=== PATIENT | female | born 1985 | race Caucasian/White ===

== ENCOUNTER 2016-08-19 11:29 | Emergency (ER) | payer OTHER ==
[~2016-08-19] VITALS: Ht 160 cm; Wt 85.0 kg
[~2016-08-19 11:29] MED LIST: CEPH500C3 PO; CIPR750T10 PO
[2016-08-19 11:31] VITALS: BP 156/100; PULSE 101; RESP 16; TEMP 99.1; O2SAT 99
--- NOTE | 2016-08-19 12:37 | PD ---
HPI . c/o nausea, vomiting and upset stomach for ~2-3 days also had a headache that she does not have now Chief Complaint: GI Complaint Time Seen by Provider: 12:37 Travel History International Travel<30 days: No Contact w/Intl Traveler<30days: No Traveled to known affect area: No History of Present Illness HPI 31-year-old female with no significant past medical history here with complaints of nausea, vomiting and upset stomach for the past 3 days. Patient also says that she had a headache that was coming occasionally, but is now gone. She decided to come into the emergency room for further evaluation as she was concerned about her symptoms. She tells me that she is rarely ever sick and is very concerned. At this present moment she tells me that she had 5- 6 episodes of diarrhea this morning and 2 episodes of vomiting. The headache occurred several days ago, but it is now gone. She denies any abdominal pain and tells me that she hears her belly making gurgling sounds. She says the main reason for her coming into the emergency department was because of the gurgling sounds. She denies any headache, weakness, fatigue, numbness or tingling. PFSH Past Medical History Diabetes: Yes (GESTATIONAL) Diminished Hearing: No ?: Not LMP: NOW : 4 Para: 3 : 1 Dilation and Curettage (D&C): Yes Tubal Ligation: Yes Past Surgical History Section: Yes (X 2) Gynecologic Surgery: Yes Pacemaker: No Social History Alcohol Use: No Tobacco Use: No Substance Use: No Allergies-Medications (Allergen,Severity, Reaction): Coded Allergies: No Known Allergies (Verified , 08/19/16) Reported Meds & Prescriptions Reported Meds & Active Scripts Active Zofran (Ondansetron HCl) 4 Mg Tab 4 Mg PO Q8HR PRN Review of Systems General / Constitutional: No: Fever Eyes: No: Visual changes HENT: No: Headaches Cardiovascular: No: Chest Pain or Discomfort Respiratory: No: Shortness of Breath Gastrointestinal: Positive: Nausea, Vomiting, Diarrhea, No: Abdominal Pain Genitourinary: No: Dysuria Musculoskeletal: No: Pain Skin: No Rash Neurologic: No: Weakness Psychiatric: No: Depression Endocrine: No: Polydipsia Hematologic/Lymphatic: No: Easy Bruising Physical Exam Narrative GENERAL: AAO x 3, no acute distress, Well-nourished, well-developed patient. SKIN: Warm and dry. No visible rashes or bruising. HEAD: Normocephalic and atraumatic. EYES: No scleral icterus. No injection or drainage. EOM intact, PERRLA, ENT: No nasal drainage noted. Mucous membranes pink. Airway patent. normal oropharynx NECK: Supple, trachea midline. No JVD. no lymphadenopathy CARDIOVASCULAR: Regular rate and rhythm without murmurs, gallops, or rubs. RESPIRATORY: Breath sounds equal bilaterally. No accessory muscle use. No rhonchi or rales. GASTROINTESTINAL: Abdomen soft, non-tender, nondistended. normoactive bowel sounds, nontender throughout, no rebound or guarding, no McBurney's point tenderness EXTREMITIES: No cyanosis or edema. NEURO: CN II through XII intact, bracelet and brooch maker strength equal bilaterally. Upper and lower Daniel strength 5 out of 5. Cerebellum function is normal. BACK: Nontender without obvious deformity. No CVA tenderness. PSYCH: AAO x 3, normal affect. Data Data Last Documented VS Vital Signs Date Time Temp Pulse Resp B/P Pulse Ox O2 Delivery O2 Flow Rate FiO2 08/19/16 12:55 92 16 145/100 98 Room Air 08/19/16 11:31 99.1 Orders Ondansetron Odt (Zofran Odt) (08/19/16 12:45) ^ Other Nursing Orders (08/19/16 12:43) MDM Medical Decision Making Medical Screen Exam Complete: Yes Emergency Medical Condition: Yes Medical Record Reviewed: Yes Differential Diagnosis Gastroenteritis, less likely influenza, less likely migraines, less likely colitis Narrative Course This is a 31-year-old female here with GI complaints. Examination was done and she has no abnormalities on exam. Abdominal examination is benign. No evidence of acute abdomen. I've offered IV fluids, and patient declined as she does not like needles. She tells me she rather go home and drink fluids. I provided her with Zofran here in the emergency department and some Gatorade. I will discharge her home with Zofran. I explained to her that this is self limiting. Patient verbalized understanding of instructions, questions were answered, and thanked me for their care. I advised them if their condition worsens, please return to the nearest emergency room for further care. Diagnosis Primary Impression: Gastroenteritis Additional Impression: Elevated blood pressure reading without diagnosis of hypertension Patient Instructions: General Instructions Additional Instructions: Try to have a bland diet for the next 1-2 days. Things such as bananas, rice, apple and toast. Your blood pressure was elevated, please have that followed by a primary care provider. This will need to be monitored. Please return to emergency department if your symptoms return or worsen. Follow up with your primary care provider. Take medications as prescribed. If you develop a sudden onset of abdominal pain, go to nearest emergency department. Med/Other Pt SpecificInfo: Prescription(s) given Scripts Ondansetron (Zofran)4 Mg Tab4 Mg PO Q8HR PRN (NAUSEA OR VOMITING) #15 TAB Ref 0 Prov:Ivette Munoz MD 08/19/16 Disposition: 01 DISCHARGE HOME Condition: Stable Kita Burr August 19, 2016 12:37
[2016-08-19] MEDS ORDERED: ONDANSETRON ODT 4 MG TAB PO ONE (12:45)
[2016-08-19] MEDS ORDERED: ZOFR4TAB PO (12:47)
[2016-08-19 12:55] VITALS: BP 145/100; PULSE 92; RESP 16; O2SAT 98
== END 2016-08-19 14:08 | disposition home or self-care (01) ==
LOC: NEPD 11:29
DX: K52.9 Noninfective gastroenteritis and colitis, unspecified (principal); R03.0 Elevated blood-pressure reading, without diagnosis of hypertension
CPT/HCPCS: 99283

== ENCOUNTER 2016-09-06 21:56 | Emergency (ER) | payer OTHER ==
[~2016-09-06 21:56] MED LIST changes: -CEPH500C3 PO; -CIPR750T10 PO; +ZOFR4TAB PO
[2016-09-06 22:00] VITALS: BP 205/96; PULSE 84; RESP 18; TEMP 98.5; O2SAT 100
[2016-09-06 22:41] VITALS: BP 179/114; PULSE 82; RESP 16; O2SAT 99
--- NOTE | 2016-09-06 22:51 | PD ---
HPI Chief Complaint: Hypertension Time Seen by Provider: 22:34 Travel History International Travel<30 days: No Contact w/Intl Traveler<30days: No Traveled to known affect area: No History of Present Illness HPI OVER PAST 2 DAYS HAS BEEN CHECKING HER BP AT [facility] AND HAS NOTED IT IS ON THE HIGH SIDE...PT STATES SHE IS NOT AND HAD BTL, BUT HAD PREECLAMPSIA AND GEST DM WHILE ... PATIENT CURRENTLY STATES HEADACHE IS 1/10 AT BEST, NO PHOTOPHOBIA, NO N/V PFSH Past Medical History Diabetes: No (GESTATIONAL) Diminished Hearing: No Hypertension: No (preeclampsia) Influenza Vaccination: No ?: Not : 3 Para: 3 : 1 Dilation and Curettage (D&C): Yes Tubal Ligation: Yes Past Surgical History Section: Yes (X 2) Gynecologic Surgery: Yes Pacemaker: No Social History Alcohol Use: No Tobacco Use: No Substance Use: No Allergies-Medications (Allergen,Severity, Reaction): Coded Allergies: No Known Allergies (Verified , 09/06/16) Reported Meds & Prescriptions Reported Meds & Active Scripts Active No Active Prescriptions or Reported Medications Review of Systems Except as stated in HPI: all other systems reviewed are Neg HENT: Positive: Headaches (MILD BURNETT, NO VISUAL CHANGES, NO LATERALIZING WEAKNESS OR OTHER SYMPTOMS) Cardiovascular: Positive: Other (NOTED HTN OVER PAST 2 DAYS AT [facility]) Physical Exam Narrative GENERAL: SKIN: Warm and dry. HEAD: Atraumatic. Normocephalic. EYES: Pupils equal and round. No scleral icterus. No injection or drainage. ENT: No nasal bleeding or discharge. Mucous membranes pink and moist. NECK: Trachea midline. No JVD. CARDIOVASCULAR: Regular rate and rhythm. RESPIRATORY: No accessory muscle use. Clear to auscultation. Breath sounds equal bilaterally. GASTROINTESTINAL: Abdomen soft, non-tender, nondistended. Hepatic and splenic margins not palpable. MUSCULOSKELETAL: Extremities without clubbing, cyanosis, or edema. No obvious deformities. NEUROLOGICAL: Awake and alert. No obvious cranial nerve deficits. Motor grossly within normal limits. Five out of 5 muscle strength in the arms and legs. Normal speech. PSYCHIATRIC: Appropriate mood and affect; insight and judgment normal. Data Data Last Documented VS Vital Signs Date Time Temp Pulse Resp B/P Pulse Ox O2 Delivery O2 Flow Rate FiO2 09/07/16 00:05 87 16 166/97 100 Room Air 6/14/17 22:[address] Brain W/O Iv Contrast(Rout) (09/06/16 22:41) Ed Urine Pregnancytest Poc (09/06/16 22:41) Complete Blood Count With Diff (09/06/16 22:47) Comprehensive Metabolic Panel (09/06/16 22:47) B-Type Natriuretic Peptide (09/06/16 22:47) Thyroid Stimulating Hormone (09/06/16 22:47) Clonidine (Catapres) (09/06/16 23:00) Labs Laboratory Tests Test 09/06/16 22:50 White Blood Count 8.4 TH/MM3 Red Blood Count 5.42 MIL/MM3 Hemoglobin 11.5 GM/DL Hematocrit 36.6 % Mean Corpuscular Volume 67.5 FL Mean Corpuscular Hemoglobin 21.2 PG Mean Corpuscular Hemoglobin 31.3 % Concent Red Cell Distribution Width 16.1 % Platelet Count 216 TH/MM3 Mean Platelet Volume 7.9 FL Neutrophils (%) (Auto) 55.0 % Lymphocytes (%) (Auto) 33.7 % Monocytes (%) (Auto) 6.7 % Eosinophils (%) (Auto) 3.8 % Basophils (%) (Auto) 0.8 % Neutrophils # (Auto) 4.6 TH/MM3 Lymphocytes # (Auto) 2.8 TH/MM3 Monocytes # (Auto) 0.6 TH/MM3 Eosinophils # (Auto) 0.3 TH/MM3 Basophils # (Auto) 0.1 TH/MM3 CBC Comment DIFF FINAL Differential Comment Sodium Level 142 MEQ/L Potassium Level 3.7 MEQ/L Chloride Level 107 MEQ/L Carbon Dioxide Level 26.3 MEQ/L Anion Gap 9 MEQ/L Blood Urea Nitrogen 17 MG/DL Creatinine 0.81 MG/DL Estimat Glomerular Filtration 81 ML/MIN Rate Random Glucose 101 MG/DL Calcium Level 8.5 MG/DL Total Bilirubin 0.3 MG/DL Aspartate Amino Transf 30 U/L (AST/SGOT) Alanine Aminotransferase 43 U/L (ALT/SGPT) Alkaline Phosphatase 80 U/L B-Type Natriuretic Peptide 5 PG/ML Total Protein 8.0 GM/DL Albumin 4.1 GM/DL Thyroid Stimulating Hormone 0.665 uIU/ML 3rd Gen [facility] Medical Decision Making Medical Screen Exam Complete: Yes Emergency Medical Condition: Yes Medical Record Reviewed: Yes Differential Diagnosis HTN NEW ONSET VS RELATED, R/O ICH, R/O RENAL INSUFFICIENCY, R/O LIVER INSUFF, Narrative Course CT NEG FOR ICH/MASS OR SINUSITIS. PATIENT LABS WERE WNL, BP WAS CONTROLLED. WILL START ON LISINOPRIL AND ADVISE PATIENT TO SETUP PCP FOR FURTHER CARE Diagnosis Primary Impression: Elevated blood pressure reading without diagnosis of hypertension Patient Instructions: General Instructions Med/Other Pt SpecificInfo: Prescription(s) given Scripts Lisinopril 20 Mg Tab20 Mg PO DAILY #30 TAB Ref 0 Prov:Brant Staton MD 09/07/16 Disposition: DISCHARGE HOME Condition: Stable Brant Staton MD Sep 06, 2016 22:51
[2016-09-06] MEDS ORDERED: cloNIDine HCL 0.1 MG TAB PO ONE (23:00)
[2016-09-06 23:04] LABS: AUTOMATED NEUTROPHIL # 4.6 TH/MM3 (1.8-7.7); BASOPHIL # 0.1 TH/MM3 (0-0.2); BASOPHIL % 0.8 % (0.0-2.0); EOSINOPHIL # 0.3 TH/MM3 (0-0.4); EOSINOPHIL % 3.8 % (0.0-4.0); HEMATOCRIT 36.6 % (35.0-46.0); HEMO FLAGS DIFF FINAL; LYMPH % 33.7 % (9.0-44.0); LYMPHOCYTE # 2.8 TH/MM3 (1.0-4.8); MEAN CELL VOLUME 67.5 FL (80.0-100.0); MEAN CORPUSCULAR HEMOGLOBIN 21.2 PG (27.0-34.0); MEAN CORPUSCULAR HGB CONC 31.3 % (32.0-36.0); MONO % 6.7 % (0.0-8.0); PLATELET COUNT 216 TH/MM3 (150-450); RED BLOOD COUNT 5.42 MIL/MM3 (4.00-5.30); RED CELL DISTRIBUTION WIDTH 16.1 % (11.6-17.2); WHITE BLOOD COUNT 8.4 TH/MM3 (4.0-11.0)
[2016-09-06 23:33] LABS: ALT (GPT) 43 U/L (10-53); ANION GAP 9 MEQ/L (5-15); AST (GOT) 30 U/L (15-37); BICARBONATE 26.3 MEQ/L (21.0-32.0); BLOOD UREA NITROGEN 17 MG/DL (7-18); CHLORIDE 107 MEQ/L (98-107); GLOMERULAR FILTRATION RATE 81 ML/MIN (>89); POTASSIUM 3.7 MEQ/L (3.5-5.1); SODIUM (NA) 142 MEQ/L (136-145)
[2016-09-06 23:42] LABS: ALKALINE PHOSPHATASE 80 U/L (45-117); TOTAL BILIRUBIN ADULT 0.3 MG/DL (0.2-1.0)
--- NOTE | 2016-09-06 23:59 | RADRPT ---
EXAM DATE/TIME: 09/06/2016 23:37 [facility] COMPARISON: No previous studies available for comparison. INDICATIONS : Headaches with high blood pressure. RADIATION DOSE: CTDIvol (mGy) MEDICAL HISTORY : Hypertension. SURGICAL HISTORY : Tubal ligation. section. ENCOUNTER: Initial ACUITY: 1 day PAIN SCALE: 2/10 LOCATION: cranial TECHNIQUE: Multiple contiguous axial images were obtained of the head. Using automated exposure control and adj ustment of the mA and/or kV according to patient size, radiation dose was kept as low as reasonably a chievable to obtain optimal diagnostic quality images. FINDINGS: There is no evidence for intracranial hemorrhage, mass effect, mass lesions, edema, or extra-axial fl uid collections. The visualized bony structures appear intact. The ventricles are normal size for t he patient's age. There are no signs of acute infarction for technique. CONCLUSION: Unremarkable study. Maria L Cunningham MD on September 06, 2016 at 23:56 Board Certified Radiologist. This report was verified electronically.
[2016-09-07 00:05] VITALS: BP 166/97; PULSE 87; RESP 16; O2SAT 100
[2016-09-07] MEDS ORDERED: LISI-515 PO (00:09)
== END 2016-09-07 00:17 | disposition home or self-care (01) ==
LOC: NEPD 21:56
DX: R03.0 Elevated blood-pressure reading, without diagnosis of hypertension (principal); R51 Headache
CPT/HCPCS: 70450; 80053; 83880; 84443; 84703; 85025; 99285

== ENCOUNTER 2016-11-21 23:16 | Emergency (ER) | payer SELFPAY ==
[~2016-11-21] VITALS: Ht 160 cm; Wt 77.0 kg
[~2016-11-21 23:16] MED LIST changes: +LISI-515 PO; -ZOFR4TAB PO
[2016-11-21 23:18] VITALS: BP 147/77; PULSE 136; RESP 16; TEMP 101.4; O2SAT 99
[2016-11-22] MEDS ORDERED: antibiotic (00:11)
[2016-11-22] MEDS ORDERED: [UNRECOGNIZED DRUG - OTHER] (00:11)
[2016-11-22 00:21] VITALS: BP 138/87; PULSE 111; RESP 18; TEMP 101.8; O2SAT 98
[2016-11-22] MEDS ORDERED: ACETAMINOPHEN 325 MG TAB PO ONE (00:30)
[2016-11-22] MEDS ORDERED: SODIUM CHLOR 0.9% 1000 ML INJ 1,000 ML IV ONE ×2 (00:30→01:15)
[2016-11-22] MEDS ORDERED: ONDANSETRON HCL 4 MG/2 ML VIAL IV ONE (00:30)
[2016-11-22 00:34] VITALS: BP 143/86; PULSE 109; RESP 18; TEMP 101.8; O2SAT 99
[2016-11-22 00:42] LABS: AUTOMATED NEUTROPHIL # 4.3 TH/MM3 (1.8-7.7); BASOPHIL % 0.3 % (0.0-2.0); EOSINOPHIL % 0.4 % (0.0-4.0); HEMO FLAGS DIFF FINAL; LYMPH % 13.5 % (9.0-44.0); LYMPHOCYTE # 0.8 TH/MM3 (1.0-4.8); MEAN CELL VOLUME 69.1 FL (80.0-100.0); MEAN CORPUSCULAR HEMOGLOBIN 23.1 PG (27.0-34.0); MEAN CORPUSCULAR HGB CONC 33.4 % (32.0-36.0); MONO % 9.7 % (0.0-8.0); NEUT % 76.1 % (16.0-70.0); PLATELET COUNT 169 TH/MM3 (150-450); RED CELL DISTRIBUTION WIDTH 17.4 % (11.6-17.2); WHITE BLOOD COUNT 5.6 TH/MM3 (4.0-11.0)
--- NOTE | 2016-11-22 00:44 | RADRPT ---
EXAM DATE/TIME: 11/22/2016 00:35 [facility] COMPARISON: No previous studies available for comparison. INDICATIONS : Fever, cough. MEDICAL HISTORY : None. SURGICAL HISTORY : None. ENCOUNTER: Initial ACUITY: 1 day PAIN SCORE: 0/10 LOCATION: Bilateral chest FINDINGS: Portable AP view of the chest demonstrates a normal-sized cardiac silhouette. No effusion, consolidat ion, or pneumothorax is visualized. The bones and soft tissues demonstrate no acute abnormality. Lung s are underinflated. CONCLUSION: No acute cardiopulmonary abnormality is identified. Sergio De La Vega MD on November 22, 2016 at 0:42 Board Certified Radiologist. This report was verified electronically.
[2016-11-22 00:59] LABS: ANION GAP 12 MEQ/L (5-15); AST (GOT) 31 U/L (15-37); BICARBONATE 23.5 MEQ/L (21.0-32.0); BLOOD UREA NITROGEN 9 MG/DL (7-18); CHLORIDE 101 MEQ/L (98-107); GLOMERULAR FILTRATION RATE 68 ML/MIN (>89); POTASSIUM 3.4 MEQ/L (3.5-5.1); SODIUM (NA) 136 MEQ/L (136-145)
[2016-11-22 01:00] LABS: ALT (GPT) 47 U/L (10-53)
[2016-11-22 01:02] LABS: ALKALINE PHOSPHATASE 78 U/L (45-117); TOTAL BILIRUBIN ADULT 0.9 MG/DL (0.2-1.0)
[2016-11-22 01:05] LABS: BLOOD, URINE MOD (NEG); COMMENT (UR) CULT NOT INDICATED; CULTURE IF INDICATED CULT NOT INDICATED; GLUCOSE,URINE NEG (NEG); KETONE, URINE 40 mg/dL (NEG); MUCUS URINE MOD /lpf (OCC); NITRITE,URINE NEG (NEG); SQUAMOUS EPITHELIAL CELL URINE 1 /hpf (0-5); URINE COLOR YELLOW (YELLW/STRAW)
--- NOTE | 2016-11-22 01:05 | PD ---
HPI Chief Complaint: Tax Services Manager Problem/Complaint Time Seen by Provider: 00:19 Travel History International Travel<30 days: No Contact w/Intl Traveler<30days: No Traveled to known affect area: No History of Present Illness HPI The patient is a 31 year old female who presents to the [facility] emergency department with a history of febrile illness that she reports began yesterday. She reports that it fevers been as high as a MAXIMUM TEMPERATURE of 101. The patient reports that she's had associated urinary frequency and urgency and is concerned she may have a urinary tract infection. She reports that she has pelvic pain and a yellow vaginal discharge associated with this with some spotting. She reports that she is 2 weeks late on her menstrual cycle. She reports that she's had a bilateral tubal ligation. She did not take a test prior to arrival. The patient reports that today she's had nausea and vomiting 5. She denies having any diarrhea. Review of systems otherwise she denies having any recent cough, congestion, neck pain, chest pain , shortness of breath, diarrhea, or neurologic symptoms. The patient denies having any new sexual partners or concerns about sexual transmitted infections. LMP: 2 weeks ago [facility] Past Medical History Narrative Medical The patient's past medical history is significant for hypertension, history of gestational diabetes. Diminished Hearing: No Hypertension: Yes (preeclampsia) Tetanus Vaccination: < 5 Years Influenza Vaccination: Yes ?: Unknown : 3 Para: 3 : 1 Dilation and Curettage (D&C): Yes Tubal Ligation: Yes Past Surgical History Narrative Surgical The patient's past surgical history is significant for bilateral tubal ligation , 2, Mirena IUD removal. Section: Yes (X 2) Gynecologic Surgery: Yes Pacemaker: No Social History Alcohol Use: No Tobacco Use: No Substance Use: No Allergies-Medications (Allergen,Severity, Reaction): Coded Allergies: No Known Allergies (Verified , 11/22/16) Reported Meds & Prescriptions Reported Meds & Active Scripts Active Lisinopril 20 Mg Tab 20 Mg PO DAILY Reported [antibiotic] Review of Systems Except as stated in HPI: all other systems reviewed are Neg General / Constitutional: Positive: Fever (tmax 101) Eyes: No: Visual changes HENT: No: Headaches Cardiovascular: No: Chest Pain or Discomfort Respiratory: No: Shortness of Breath Gastrointestinal: Positive: Nausea, Vomiting (x6-7), Abdominal Pain, No: Diarrhea Genitourinary: Positive: Urgency, Frequency, Dysuria, Pelvic Pain, Vaginal Bleeding, Other (late 2 weeks for period) Musculoskeletal: Positive: Myalgias, No: Pain Skin: No Rash Neurologic: No: Weakness, Focal Abnormalities, Change in Mentation, Slurred Speech, Sensory Disturbance Psychiatric: No: Depression Endocrine: No: Polydipsia Hematologic/Lymphatic: No: Easy Bruising Physical Exam Narrative General: The patient is a well-developed well-nourished female in no acute distress. Head and Neck exam: Head is normocephalic atraumatic. Eyes: EOMI, pupils are equal round and reactive to light. Nose: Midline septum with pink mucous membranes Mouth: Dentition unremarkable. Moist mucus membranes. Posterior oropharynx is not erythematous. No tonsillar hypertrophy. Uvula midline. Airway patent. Neck: No palpable lymphadenopathy. No nuchal rigidity. No thyromegaly. Cardiovascular: Sinus tachycardia in the 1 teens without murmurs, gallops, or rubs. No pulse deficit to the extremities on simultaneous auscultation and palpation of her radial artery. Lungs: Clear to auscultation bilaterally. No wheezes, rhonchi, or rales. Abdomen: Soft, without tenderness to palpation in all 4 quadrants of the abdomen. No guarding, rebound, or rigidity. Normal bowel sounds are audible. No tenderness on palpation of McBurney's point. Negative Brooks's sign. Extremities: No clubbing, cyanosis, or edema. 2+ pulses in all 4 extremities. No calf tenderness on palpation. Back: No costovertebral angle tenderness to palpation. Neurologic Exam: Grossly nonfocal. Skin Exam: No rash noted. Intact skin that is warm and dry. Gynecologic exam: The patient was placed in the dorsal lithotomy position. Her external genitalia were examined. She had no evidence of rash or lesions. The speculum was placed into her vagina and the cervix was identified. She had a thin white discharge with a scant amount of blood. No cervical friability. On Bimanual exam: she has no cervical motion tenderness. No adnexal tenderness or prominence noted on palpation. She has bladder tenderness on palpation on bimanual examination. No uterine tenderness or enlargement noted on palpation. Data Data Last Documented VS Vital Signs Date Time Temp Pulse Resp B/P (MAP) Pulse Ox O2 Delivery O2 Flow Rate FiO2 11/22/16 01:37 99.7 11/22/16 00:34 109 18 99 Room Air Orders Orders Complete Blood Count With Diff (11/22/16 00:20) Comprehensive Metabolic Panel (11/22/16 00:20) Blood Culture (11/22/16 00:20) C-Reactive Protein (Crp) (11/22/16 00:20) Lipase (11/22/16 00:20) Urinalysis - C+S If Indicated (11/22/16 00:20) Chest, Single Ap (11/22/16 00:20) Iv Access Insert/Monitor (11/22/16 00:20) Ecg Monitoring (11/22/16 00:20) Oximetry (11/22/16 00:20) Ed Urine Pregnancytest Poc (11/22/16 00:20) Lactic Acid Sepsis Protocol (11/22/16 00:20) Sodium Chlor 0.9% 1000 Ml Inj (Ns 1000 M (11/22/16 00:30) Ondansetron Inj (Zofran Inj) (11/22/16 00:30) Acetaminophen (Tylenol) (11/22/16 00:30) Gc And Chlamydia Pcr (11/22/16 01:07) Wet Prep Profile (11/22/16 01:07) Ceftriaxone Inj (Rocephin Inj) (11/22/16 01:15) Sodium Chlor 0.9% 1000 Ml Inj (Ns 1000 M (11/22/16 01:15) Oral Rehydration (11/22/16 01:08) Labs Laboratory Tests Test 11/22/16 00:28 11/22/16 02:05 White Blood Count 5.6 TH/MM3 Red Blood Count 5.50 MIL/MM3 Hemoglobin 12.7 GM/DL Hematocrit 38.0 % Mean Corpuscular Volume 69.1 FL Mean Corpuscular Hemoglobin 23.1 PG Mean Corpuscular Hemoglobin Concent 33.4 % Red Cell Distribution Width 17.4 % Platelet Count 169 TH/MM3 Mean Platelet Volume 7.5 FL Neutrophils (%) (Auto) 76.1 % Lymphocytes (%) (Auto) 13.5 % Monocytes (%) (Auto) 9.7 % Eosinophils (%) (Auto) 0.4 % Basophils (%) (Auto) 0.3 % Neutrophils # (Auto) 4.3 TH/MM3 Lymphocytes # (Auto) 0.8 TH/MM3 Monocytes # (Auto) 0.5 TH/MM3 Eosinophils # (Auto) 0.0 TH/MM3 Basophils # (Auto) 0.0 TH/MM3 CBC Comment DIFF FINAL Differential Comment Urine Color YELLOW Urine Turbidity CLOUDY Urine pH 6.0 Urine Specific [place] 1.030 Urine Protein 100 mg/dL Urine Glucose (UA) NEG mg/dL Urine Ketones 40 mg/dL Urine Occult Blood MOD Urine Nitrite NEG Urine Bilirubin NEG Urine Urobilinogen LESS THAN 2.0 MG/DL Urine Leukocyte Esterase NEG Urine RBC 9 /hpf Urine Squamous Epithelial Cells 1 /hpf Urine Amorphous Sediment RARE Urine Mucus MOD /lpf Microscopic Urinalysis Comment CULT NOT INDICATED Blood Urea Nitrogen 9 MG/DL Creatinine 0.95 MG/DL Random Glucose 130 MG/DL Total Protein 8.8 GM/DL Albumin 4.1 GM/DL Calcium Level 8.5 MG/DL Alkaline Phosphatase 78 U/L Aspartate Amino Transf (AST/SGOT) 31 U/L Alanine Aminotransferase (ALT/SGPT) 47 U/L Total Bilirubin 0.9 MG/DL Sodium Level 136 MEQ/L Potassium Level 3.4 MEQ/L Chloride Level 101 MEQ/L Carbon Dioxide Level 23.5 MEQ/L Anion Gap 12 MEQ/L Estimat Glomerular Filtration Rate 68 ML/MIN Lactic Acid Level 1.3 mmol/L C-Reactive Protein 4.00 MG/DL Lipase 134 U/L Clue Cells (Wet Prep) NONE SEEN Vaginal Trichomonas (Wet Prep) NONE SEEN Vaginal Yeast (Wet Prep) NONE SEEN MDM Medical Decision Making Medical Screen Exam Complete: Yes Emergency Medical Condition: Yes Medical Record Reviewed: Yes Interpretation(s) Last Impressions Chest X-Ray 11/22/16 0020 Signed Impressions: Service Date/Time: Tuesday, November 22, 2016 00:35 - CONCLUSION: No acute cardiopulmonary abnormality is identified. Sergio De La Vega MD Differential Diagnosis Cervicitis, versus PID, versus urinary tract infection, versus pyelonephritis, versus viral syndrome Narrative Course During the course of the patients emergency department visit, the patients history, examination, and differential diagnosis were reviewed with the patient. The patient had IV access obtained and blood work sent for analysis. The patient's was on a cardiac rehabilitation program director with oximetry and blood pressure monitoring. The patient was initially provided normal saline 1 L IV fluid bolus, Zofran 4 mg IV, Tylenol 650 by mouth 1. The patient had a second liter of normal saline administered. The patient was started on oral rehydration therapy which she tolerated well. The patients laboratory studies were reviewed and remarkable for a white count of 5.6, hemoglobin 12.7, platelets 169 with 76.1 neutrophils, monocytes 9.7, CMP is remarkable for potassium of 3.4, glucose 1:30, C-reactive protein 4, total protein 8.8, lipase 134, lactic acid 1.3, urinalysis shows 40 ketones, moderate occult blood, 19 RBCs, moderate mucus, culture not indicated. Radiology studies were reviewed and remarkable for a chest x-ray that is unremarkable. The patient is resting comfortably and feels better, is alert and in no distress. The patients results and examination findings were discussed with the patient. The repeat examination is unremarkable and benign. The history, exam, diagnostic testing, and current condition do not suggest any significant pathology to warrant further testing, continued ED treatment, admission, or surgical evaluation at this point. The vital signs have been stable. The patient does not have uncontrollable pain, intractable vomiting, or other significant symptoms. The patient's condition is stable and appropriate for discharge. The patient will pursue further outpatient evaluation with a primary care physician or other designated or consulting physician as indicated in the discharge instructions. The patient expressed understanding and was agreeable with this plan. Diagnosis Primary Impression: Febrile illness, acute Additional Impressions: Microscopic hematuria Vaginitis Qualified Codes: N76.0 - Acute vaginitis Referrals: Primary Care Physician 2 days Patient Instructions: Fever in Adults (ED), General Instructions, Hematuria (ED ), Pelvic Pain in Women (ED) Med/Other Pt SpecificInfo: Prescription(s) given Scripts Ondansetron Odt (Zofran Odt) 4 Mg Tab 4 MG SL Q6HR Y for Nausea/Vomiting, #307 TAB 0 Refills Prov: Bertha Liriano MD 11/22/16 Cefuroxime (Cefuroxime) 500 Mg Tab 500 MG PO BID for Infection for 10 Days, TAB 0 Refills Prov: Bertha Liriano MD 11/22/16 Doxycycline Hyclate (Doxycycline Hyclate) 100 Mg Cap 100 MG PO BID for Infection, #20 CAP 0 Refills Prov: Bertha Liriano MD 11/22/16 Disposition: 01 DISCHARGE HOME Condition: Stable Bertha Liriano MD Nov 22, 2016 01:04
[2016-11-22] MEDS ORDERED: cefTRIAXone INJ 1,000 MG in SODIUM CHLORIDE 0.9% INJ 100 ML IV ONE (01:15)
[2016-11-22 01:37] VITALS: TEMP 99.7
[2016-11-22] MEDS ORDERED: DOXY100C PO (03:31)
[2016-11-22] MEDS ORDERED: ZOFR4TAB3 SL (03:31)
[2016-11-22] MEDS ORDERED: CEFU1TAB20 PO (03:31)
[2016-11-22 05:03] LABS: CHLAMYDIA PCR NOT DETECTED (NOT DETECT); NEISSERIA PCR NOT DETECTED (NOT DETECT)
== END 2016-11-22 04:04 | disposition home or self-care (01) ==
LOC: NEPE 23:16
DX: R50.9 Fever, unspecified (principal); R31.29 Other microscopic hematuria; N76.0 Acute vaginitis; R00.0 Tachycardia, unspecified; R11.2 Nausea with vomiting, unspecified; I10 Essential (primary) hypertension; Z79.899 Other long term (current) drug therapy
CPT/HCPCS: 71010; 80053; 81001; 83605; 83690; 84703; 85025; 86140; 87040; 87210; 87491; 87591; 96361; 96374; 96375; 99284; J0696; J2405; J7030

== ENCOUNTER 2017-04-22 09:24 | Emergency (ER) | payer OTHER ==
[~2017-04-22] VITALS: Ht 160 cm; Wt 82.0 kg
[~2017-04-22 09:24] MED LIST changes: +CEFU1TAB20 PO; +DOXY100C PO; +ZOFR4TAB3 SL; +antibiotic
[2017-04-22 09:27] VITALS: BP 163/98; PULSE 85; RESP 14; TEMP 98.7; O2SAT 99
[2017-04-22] MEDS ORDERED: SODIUM CHLOR 0.9% 1000 ML INJ 1,000 ML IV SCH (09:44)
[2017-04-22] MEDS ORDERED: KETOROLAC TROMETHAMINE 30 MG/ML (IVP) VIAL IVP ONE (09:45)
[2017-04-22] MEDS ORDERED: SODIUM CHLORIDE 0.9% FLUSH 10 ML FLUSH IV FLUSH PRN (09:45)
--- NOTE | 2017-04-22 09:51 | PD ---
HPI Chief Complaint: Abdominal Pain Time Seen by Provider: 09:36 Travel History International Travel<30 days: No Contact w/Intl Traveler<30days: No Traveled to known affect area: No History of Present Illness HPI 32-year-old female presents to the emergency department for evaluation of abdominal pain for 1 week. She states the pain is constant in her right lower quadrant and left lower quadrant. Patient states she does a lot of heavy lifting at work, but the heavy lifting does not increase her pain. She states that the pain is currently 3/10, aching without radiation. No exacerbating or alleviating factors. She denies reporting history of tubal ligation. She denies any other abdominal surgeries or history of abdominal pain. No fevers or chills. No nausea, vomiting, diarrhea, constipation. She denies any abnormal vaginal discharge or risk of STDs. She denies any pelvic pain. Moderate severity. PFSH Past Medical History Diminished Hearing: No Hypertension: Yes (preeclampsia) ?: Not LMP: 03/2017 : 3 Para: 3 : 1 Dilation and Curettage (D&C): Yes Tubal Ligation: Yes Past Surgical History Section: Yes (X 2) Gynecologic Surgery: Yes Pacemaker: No Social History Alcohol Use: No Tobacco Use: No Substance Use: No Allergies-Medications (Allergen,Severity, Reaction): Coded Allergies: No Known Allergies (Verified Adverse Reaction, Unknown, 04/22/17) Reported Meds & Prescriptions Reported Meds & Active Scripts Active Lisinopril 20 Mg Tab 20 Mg PO DAILY Review of Systems Except as stated in HPI: all other systems reviewed are Neg Physical Exam Narrative GENERAL: Well-nourished, well-developed female patient, ambulatory. Afebrile. SKIN: Focused skin assessment warm/dry. HEAD: Normocephalic. Atraumatic. EYES: No scleral icterus. No injection or drainage. NECK: Supple, trachea midline. No JVD or lymphadenopathy. CARDIOVASCULAR: Regular rate and rhythm without murmurs, gallops, or rubs. RESPIRATORY: Breath sounds equal bilaterally. No accessory muscle use. Lungs sounds are clear to auscultation. GASTROINTESTINAL: Abdomen soft and nondistended. Patient has tenderness over the right lower quadrant and left lower quadrant as well as periumbilical regions. MUSCULOSKELETAL: No cyanosis, or edema. BACK: Nontender without obvious deformity. No CVA tenderness. Data Data Last Documented VS Vital Signs Date Time Temp Pulse Resp B/P (MAP) Pulse Ox O2 Delivery O2 Flow Rate FiO2 04/22/17 10:20 81 18 134/96 (109) 99 Room Air 04/22/17 09:27 98.7 Orders Orders Complete Blood Count With Diff (04/22/17 09:44) Comprehensive Metabolic Panel (04/22/17 09:44) Lipase (04/22/17 09:44) Urinalysis - C+S If Indicated (04/22/17 09:44) Ct Abd/Pel W Iv Contrast(Rout) (04/22/17 09:44) Iv Access Insert/Monitor (04/22/17 09:44) Ecg Monitoring (04/22/17 09:44) Oximetry (04/22/17 09:44) Sodium Chlor 0.9% 1000 Ml Inj (Ns 1000 M (04/22/17 09:44) Sodium Chloride 0.9% Flush (Ns Flush) (04/22/17 09:45) Ketorolac Inj (Toradol Inj) (04/22/17 09:45) Ed Urine Pregnancytest Poc (04/22/17 09:44) Iohexol 350 Inj (Omnipaque 350 Inj) (04/22/17 10:50) Labs Laboratory Tests Test 04/22/17 10:05 04/22/17 10:15 Urine Color YELLOW Urine Turbidity CLEAR Urine pH 5.5 Urine Specific Cass 1.025 Urine Protein TRACE mg/dL Urine Glucose (UA) NEG mg/dL Urine Ketones NEG mg/dL Urine Occult Blood NEG Urine Nitrite NEG Urine Bilirubin NEG Urine Urobilinogen LESS THAN 2.0 MG/DL Urine Leukocyte Esterase NEG Urine RBC 1 /hpf Urine WBC 1 /hpf Urine Squamous Epithelial Cells 4 /hpf Urine Mucus FEW /lpf Microscopic Urinalysis Comment CULT NOT INDICATED White Blood Count 7.1 TH/MM3 Red Blood Count 5.49 MIL/MM3 Hemoglobin 11.4 GM/DL Hematocrit 35.7 % Mean Corpuscular Volume 65.0 FL Mean Corpuscular Hemoglobin 20.8 PG Mean Corpuscular Hemoglobin Concent 31.9 % Red Cell Distribution Width 16.6 % Platelet Count 240 TH/MM3 Mean Platelet Volume 7.8 FL Neutrophils (%) (Auto) 56.1 % Lymphocytes (%) (Auto) 33.2 % Monocytes (%) (Auto) 5.5 % Eosinophils (%) (Auto) 4.4 % Basophils (%) (Auto) 0.8 % Neutrophils # (Auto) 4.0 TH/MM3 Lymphocytes # (Auto) 2.4 TH/MM3 Monocytes # (Auto) 0.4 TH/MM3 Eosinophils # (Auto) 0.3 TH/MM3 Basophils # (Auto) 0.1 TH/MM3 CBC Comment DIFF FINAL Differential Comment Blood Urea Nitrogen 17 MG/DL Creatinine 0.74 MG/DL Random Glucose 113 MG/DL Total Protein 8.4 GM/DL Albumin 4.1 GM/DL Calcium Level 8.7 MG/DL Alkaline Phosphatase 74 U/L Aspartate Amino Transf (AST/SGOT) 17 U/L Alanine Aminotransferase (ALT/SGPT) 27 U/L Total Bilirubin 0.4 MG/DL Sodium Level 140 MEQ/L Potassium Level 3.7 MEQ/L Chloride Level 108 MEQ/L Carbon Dioxide Level 25.4 MEQ/L Anion Gap 7 MEQ/L Estimat Glomerular Filtration Rate 90 ML/MIN Lipase 206 U/L [facility] Medical Decision Making Medical Screen Exam Complete: Yes Emergency Medical Condition: Yes Medical Record Reviewed: Yes Interpretation(s) Last Impressions Abdomen/Pelvis CT 04/22/17 0944 Signed Impressions: Service Date/Time: Saturday, April 22, 2017 10:32 - CONCLUSION: 1. Focal soft tissue mass involving the left anterior pelvic wall immediately adjacent to a midline incision. This may represent an area of fibrosis, endometriosis and less likely neoplasm. Recommend correlation with the site of the patient's pain. 2. Bilateral nonobstructing renal stones. No evidence of inflammatory process within the abdomen or pelvis.. Sherie Timmons MD Differential Diagnosis UTI versus appendicitis versus diverticulitis versus ovarian cyst versus pyelonephritis Narrative Course 32-year-old female presents to the emergency department for evaluation of lower abdominal pain for 1 week. IV access established. CBC, CMP, lipase, UA, urine test are ordered and pending. CT abdomen/pelvis with IV contrast is ordered and pending. Patient is given normal saline 1 L IV bolus, Toradol 30 mg IV. CBC shows no acute abnormality. CMP shows no acute abnormality. Lipase is 206. UA is negative for acute infection. UPT is negative. CT abdomen/pelvis shows focal soft tissue mass involving the left anterior pelvic wall immediately adjacent to a midline incision. This may represent an area of fibrosis, endometriosis and less likely neoplasm. Recommend correlation with the site of the patient's pain; Bilateral nonobstructing renal stones. No evidence of inflammatory process within the abdomen or pelvis. 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 She verbalizes agreement. The patient was discharged in stable condition with instructions, including return instructions and follow up instructions. Diagnosis Primary Impression: Abdominal pain Qualified Codes: R10.30 - Lower abdominal pain, unspecified Referrals: [facility] call for appointment [employer] call for appointment [facility] call for appointment Patient Instructions: Abdominal Pain (ED), General Instructions Departure Forms: Tests/Procedures, Work Release Enter return to work date: Apr 23, 2017 Additional Instructions: Follow-up with auto body shop manager. I also gave information on the [facility] clinic as well as the [facility] clinic for women. Take ibuprofen as directed as needed with food for pain. Return to the emergency department for any acute worsening of symptoms. Med/Other Pt SpecificInfo: Prescription(s) given Scripts Ibuprofen (Ibuprofen) 600 Mg Tab 600 MG PO TID Y for PAIN SCALE 1 TO 10, #21 TAB 0 Refills Prov: Priscilla Roland 04/22/17 Disposition: 01 DISCHARGE HOME Condition: Stable Priscilla Roland Apr 22, 2017 09:51
[2017-04-22 10:20] VITALS: BP 134/96; PULSE 81; RESP 18; O2SAT 99
[2017-04-22 10:42] LABS: BASOPHIL # 0.1 TH/MM3 (0-0.2); BASOPHIL % 0.8 % (0.0-2.0); EOSINOPHIL # 0.3 TH/MM3 (0-0.4); EOSINOPHIL % 4.4 % (0.0-4.0); HEMATOCRIT 35.7 % (35.0-46.0); HEMOGLOBIN 11.4 GM/DL (11.6-15.3); LYMPH % 33.2 % (9.0-44.0); LYMPHOCYTE # 2.4 TH/MM3 (1.0-4.8); MEAN CORPUSCULAR HEMOGLOBIN 20.8 PG (27.0-34.0); MEAN CORPUSCULAR HGB CONC 31.9 % (32.0-36.0); MEAN PLATELET VOLUME 7.8 FL (7.0-11.0); MONO % 5.5 % (0.0-8.0); MONOCYTE # 0.4 TH/MM3 (0-0.9); NEUT % 56.1 % (16.0-70.0); PLATELET COUNT 240 TH/MM3 (150-450); RED BLOOD COUNT 5.49 MIL/MM3 (4.00-5.30); RED CELL DISTRIBUTION WIDTH 16.6 % (11.6-17.2); WHITE BLOOD COUNT 7.1 TH/MM3 (4.0-11.0)
[2017-04-22 10:49] LABS: BILIRUBIN, URINE NEG (NEG); BLOOD, URINE NEG (NEG); GLUCOSE,URINE NEG (NEG); KETONE, URINE NEG (NEG); MUCUS URINE FEW /lpf (OCC); NITRITE,URINE NEG (NEG); PH, URINE 5.5 (5.0-8.5); SQUAMOUS EPITHELIAL CELL URINE 4 /hpf (0-5); URINE COLOR YELLOW (YELLW/STRAW); URINE LEUKOCYTE ESTERASE NEG (NEG)
[2017-04-22] MEDS ORDERED: IOHEXOL 350 MG/ML 10 ML VIAL (for RAD DIAG) IVCONTRAST ONE (10:50)
[2017-04-22 10:57] LABS: ALBUMIN 4.1 GM/DL (3.4-5.0); ALT (GPT) 27 U/L (10-53); AST (GOT) 17 U/L (15-37); BICARBONATE 25.4 MEQ/L (21.0-32.0); BLOOD UREA NITROGEN 17 MG/DL (7-18); CALCIUM 8.7 MG/DL (8.5-10.1); CHLORIDE 108 MEQ/L (98-107); CREATININE 0.74 MG/DL (0.50-1.00); GLOMERULAR FILTRATION RATE 90 ML/MIN (>89); GLUCOSE,RANDOM 113 MG/DL (74-106); SODIUM (NA) 140 MEQ/L (136-145)
[2017-04-22 10:59] LABS: ALKALINE PHOSPHATASE 74 U/L (45-117); TOTAL BILIRUBIN ADULT 0.4 MG/DL (0.2-1.0); TOTAL PROTEIN 8.4 GM/DL (6.4-8.2)
--- NOTE | 2017-04-22 11:21 | RADRPT ---
EXAM DATE/TIME: 04/22/2017 10:32 [place] COMPARISON: No previous studies available for comparison. INDICATIONS : Lower abdomen pain for one week. IV CONTRAST: 85 cc Omnipaque 350 (iohexol) IV ORAL CONTRAST: No oral contrast ingested. RADIATION DOSE: 6.71 CTDIvol (mGy) MEDICAL HISTORY : Hypertension. SURGICAL HISTORY : Tubal ligation. ENCOUNTER: Initial ACUITY: 1 week PAIN SCALE: 6/10 LOCATION: Bilateral lower quadrant TECHNIQUE: Volumetric scanning of the abdomen and pelvis was performed. Using automated exposure control and ad justment of the mA and/or kV according to patient size, radiation dose was kept as low as reasonably achievable to obtain optimal diagnostic quality images. DICOM format image data is available electro nically for review and comparison. FINDINGS: LOWER LUNGS: The visualized lower lungs are clear. LIVER: Homogeneous low density without lesion. There is no dilation of the biliary tree. No calcified gall stones. SPLEEN: Normal size without lesion. PANCREAS: Within normal limits. KIDNEYS: Normal in size and shape. There is no mass or hydronephrosis. Bilateral small nonobstructing renal s tones. The largest measures 5 mm within the upper pole of the right kidney. ADRENAL GLANDS: Within normal limits. VASCULAR: There is no aortic aneurysm. BOWEL/MESENTERY: The stomach, small bowel, and colon demonstrate no acute abnormality. There is no free intraperitone al air or fluid. ABDOMINAL WALL: There is a focal rounded 2.8 cm soft tissue density involving the left anterior abdominal wall immedi ately adjacent to a midline incision. This demonstrates mildly irregular borders and extends to the o verlying skin. RETROPERITONEUM: There is no lymphadenopathy. BLADDER: No wall thickening or mass. REPRODUCTIVE: There are bilateral symmetric ovarian follicles identified. The uterus appears normal. INGUINAL: There is no lymphadenopathy or hernia. MUSCULOSKELETAL: Within normal limits for patient age. CONCLUSION: 1. Focal soft tissue mass involving the left anterior pelvic wall immediately adjacent to a midline i ncision. This may represent an area of fibrosis, endometriosis and less likely neoplasm. Recommend co rrelation with the site of the patient's pain. 2. Bilateral nonobstructing renal stones. No evidence of inflammatory process within the abdomen or p russell.. Sherie Timmons MD on April 22, 2017 at 11:16 Board Certified Radiologist. This report was verified electronically.
[2017-04-22] MEDS ORDERED: IBUP-232 PO (11:46)
== END 2017-04-22 12:09 | disposition home or self-care (01) ==
LOC: NEPD 09:24
DX: R10.30 Lower abdominal pain, unspecified (principal)
CPT/HCPCS: 74177; 80053; 81001; 83690; 84703; 85025; 96374; 99285; J1885; J7030; Q9967

== ENCOUNTER 2017-12-20 05:53 | Observation (INO) ==
[2017-12-20 06:02] VITALS: TEMP 97.6
[2017-12-20] MEDS ORDERED: Pantoprazole Inj 40 MG Vial IV.PUSH ONE (06:40)
[2017-12-20] MEDS ORDERED: Aluminum/Magnesium/Simethacone Susp 30 ML UDC PO ONE (06:40)
--- NOTE | 2017-12-20 06:45 | ED ---
HPI General Chief Complaint: Chest Pain Stated Complaint: Chest Pain Time Seen by Provider: 12/20/17 06:16 Source: patient Mode of arrival: ambulatory Limitations: no limitations History of Present Illness HPI narrative: 32-year-old female complains of chest pain. Patient states that she has chest pain for the past 2 nights. Patient states that she feels reflux symptoms with pressure indigestion feelings of epigastric radiation to the substernal area for the past 2 nights. Patient states that she had nausea and diaphoresis with the chest pain. Patient denies palpitation. Patient denies any shortness of breath. Patient denies any history of gastritis or peptic ulcer disease. Patient denies history of CAD. Patient has history hypertension on lisinopril. Patient denies any history of diabetes or hyperlipidemia. Patient is a non-smoker. Patient denies family history of heart disease. Patient states that the chest pain is not associate with exertion. MD complaint: chest pain STEMI Alert: No Onset (ago): day(s) Duration: intermittent Onset: during rest Pain location: substernal Severity: moderate Severity scale (1-10): 7 Quality: tightness and aching Pain radiation: none Relieving factors: nothing Exacerbating factors: nothing Associated symptoms: nausea and diaphoresis Treatments prior to arrival chest pain: none Related Data Previous Rx's Medication Instructions Recorded lisinopril 10 mg PO DAILY #30 tab 12/16/17 sulfamethoxazole-trimethoprim 800,160 mg PO Q12H #6 tab 12/16/17 [Bactrim DS] Allergies Allergy/AdvReac Type Severity Reaction Status Date / Time No Known Allergies Allergy Verified 12/16/17 05:49 Review of Systems ROS: all other systems reviewed are negative [facility] Medical History Medical History Hypertension (Acute) Surgical History Surgical History Hx of section (Acute) Hx of tubal ligation (Acute) Social History Social History Substance History: Active Abuse Second Hand Smoke Exposure: No Smoking Status: Never smoker How Often Do You Have a Drink Containing Alcohol: Never Recent Travel in [facility] within the Last 8 Weeks: No Recent Out of Country Travel within the Last 8 Weeks: No Substance Abuse Detail Marijuana: Substance Use Status: Active Route Used Substance Abuse: Inhalation Reason for Use: Calm Down Immunization History Tetanus Immunization: Unsure Hx Influenza Vaccine This Season: No Exam Narrative Exam Narrative: GENERAL: Well-nourished, well-developed patient. SKIN: Focused skin assessment warm/dry. HEAD: Normocephalic. EYES: No scleral icterus. No injection or drainage. NECK: Supple, trachea midline. No JVD or lymphadenopathy. CARDIOVASCULAR: Regular rate and rhythm without murmurs, gallops, or rubs. RESPIRATORY: Breath sounds equal bilaterally. No accessory muscle use. GASTROINTESTINAL: Abdomen soft, non-tender, nondistended. MUSCULOSKELETAL: No cyanosis, or edema. BACK: Nontender without obvious deformity. No CVA tenderness. Neurologic exam normal. Course Initial Documented Vital Signs Temperature 97.6 F 12/20/17 05:59 Pulse Rate 86 12/20/17 05:59 Respiratory Rate 16 12/20/17 05:59 Blood Pressure 124/59 L 12/20/17 05:59 Pulse Oximetry 100 12/20/17 05:59 Last Documented Vital Signs Temperature 97.6 F 12/20/17 05:59 Pulse Rate 79 12/20/17 08:29 Respiratory Rate 18 12/20/17 08:29 Blood Pressure 109/69 12/20/17 08:29 Pulse Oximetry 99 12/20/17 08:29 Medical Decision Making MDM Narrative Medical decision making narrative: 32-year-old female with substernal chest pain. Protonix 40 mg IV given. Maalox 30 cc p.o. given. Patient CARE assume by me Dr. Josue from Dr. Jo at 07 100, this is a 32-year- old female, history of hypertension presents emergency department with substernal chest pain radiating up from her epigastrium. She states she actually threw up once and became diaphoretic. Also endorses some dizzy spells. Initial troponin EKG chest x-ray all within normal limits. Patient discussed with Dr. Jo he would have liked her to be admitted to the chest pain center for stress testing to rule out ischemia as a cause. I do not disagree, the patient certainly seems more atypical to me however and probably is due to some reflux. I think after exclusion of ACS she could follow this up as an outpatient. Recommendations were discussed with Patient and she is agreeable. Medical Screen Exam Complete: Yes Emergency Medical Condition: Yes Differential Diagnosis Differential Diagnosis: Differential diagnosis including GERD, angina, MT, PE, pneumothorax. Lab Data Result diagrams: 12/20/17 06:47 12/20/17 06:47 Lab Results 12/20/17 12/20/17 12/20/17 Range/Units 06:47 06:47 06:47 WBC 7.1 (4.0-11.0) th/mm3 RBC 5.59 H (4.00-5.30) mil/mm3 Hgb 10.6 L (11.6-15.3) gm/dL Hct 34.8 L (35.0-46.0) % MCV 62.2 L (80.0-100.0) fL MCH 18.9 L (27.0-34.0) pg MCHC 30.4 L (32.0-36.0) % RDW 18.5 H (11.6-17.2) % Plt Count 235 (150-450) th/mm3 MPV 9.0 (7.0-11.0) fL Neut % (Auto) 66.3 (16.0-70.0) % Lymph % (Auto) 25.6 (9.0-44.0) % [place] % (Auto) 5.3 (0.0-8.0) % Eos % (Auto) 2.0 (0.0-4.0) % Baso % (Auto) 0.8 (0.0-2.0) % Neut # (Auto) 4.7 (1.8-7.7) th/mm3 Lymph # (Auto) 1.8 (1.0-4.8) th/mm3 [place] # (Auto) 0.4 (0.0-0.9) th/mm3 Eos # (Auto) 0.1 (0.0-0.4) th/mm3 Baso # (Auto) 0.1 (0.0-0.2) th/mm3 WBC Differential . Differential Comment Auto diff final PT 10.4 (9.8-11.6) sec INR 1.0 Ratio APTT 26.2 (24.3-30.1) sec Sodium 136 (136-145) meq/L Potassium 4.3 (3.5-5.1) meq/L Chloride 104 (98-107) meq/L Carbon Dioxide 24.5 (21.0-32.0) meq/L Anion Gap 8 (5-15) meq/L BUN 13 (7-18) mg/dL Creatinine 0.67 (0.50-1.00) mg/dL Estimated GFR Greater than 89 (>89) mL/min Random Glucose 92 (74-106) mg/dL Calcium 8.4 L (8.5-10.1) mg/dL Total Bilirubin 0.4 (0.2-1.0) mg/dL AST 19 (15-37) U/L ALT 26 (10-53) U/L Alkaline Phosphatase 72 (45-117) U/L Total Creatine Kinase 117 (26-192) U/L CK-MB (CK-2) 1.6 (0.5-3.6) ng/mL Troponin I Less than 0.02 L (0.02-0.05) ng/mL Total Protein 8.2 (6.4-8.2) g/dL Albumin 3.9 (3.4-5.0) g/dL Lipase 174 (73-393) U/L Imaging Data Radiologist's impression: Chest X-Ray 12/20/17 06:40 CONCLUSION: No acute cardiopulmonary disease identified. Discharge Plan Discharge Disposition Patient Disposition: 30 Still Patient Discharge Condition Condition: Stable Discharge Details Diagnosis: Chest pain Physicians Team ED Provider: Toño Josue Primary Care Provider: Primary Care Flor Larry Rxs /Orders / Referrals /Forms Prescriptions: No Action sulfamethoxazole-trimethoprim [Bactrim DS] 800-160 mg tablet 800,160 mg PO Q12H Qty: 6 RF: 0 lisinopril 10 mg tablet 10 mg PO DAILY Qty: 30 RF: 0 Discharge Instructions Patient Printed Instructions: Chest Pain (ED) Status ED Status: With Doctor
--- NOTE | 2017-12-20 06:59 | XR ---
EXAM DATE: 12/20/2017 6:40 AM EDT AGE/SEX: 32 years / Female INDICATIONS: Burning in chest. CLINICAL DATA: This is the patient's initial encounter. Patient reports that signs and symptoms have been present for 3 days and indicates a pain score of 5/10. MEDICAL/SURGICAL HISTORY: Hypertension. Tubal ligation. section. [place] [facility] [place]. . FINDINGS: Single AP view the chest. Lung volumes are low The lungs are clear. Cardiomediastinal [place]co [place] within normal limits. No evidence of pleural effusion or pneumothorax. CONCLUSION: No acute cardiopulmonary disease identified. Electronically signed by: Noe Tate MD 12/20/2017 6:57 AM EDT
[2017-12-20 08:29] VITALS: BP 109/69; PULSE 79; RESP 18; O2SAT 99
[2017-12-20 08:49] LABS: Baso # (Auto) 0.1 th/mm3 (0.0-0.2); Baso % (Auto) 0.8 % (0.0-2.0); Eos # (Auto) 0.1 th/mm3 (0.0-0.4); Hematocrit 34.8 % (35.0-46.0); Hemoglobin 10.6 gm/dL (11.6-15.3); Lymph # (Auto) 1.8 th/mm3 (1.0-4.8); Lymph % (Auto) 25.6 % (9.0-44.0); Mean Corpuscular Hemoglobin 18.9 pg (27.0-34.0); Mean Corpuscular Volume 62.2 fL (80.0-100.0); Mono # (Auto) 0.4 th/mm3 (0.0-0.9); Mono % (Auto) 5.3 % (0.0-8.0); Neut # (Auto) 4.7 th/mm3 (1.8-7.7); Neut % (Auto) 66.3 % (16.0-70.0); Platelet Count 235 th/mm3 (150-450); Red Blood Count 5.59 mil/mm3 (4.00-5.30); Red Cell Distribution Width 18.5 % (11.6-17.2); White Blood Count 7.1 th/mm3 (4.0-11.0)
[2017-12-20 08:51] LABS: Mean Corpuscular HGB Conc 30.4 % (32.0-36.0)
[2017-12-20 08:58] LABS: Activated Partial Thrombo Time 26.2 sec (24.3-30.1); Prothrombin Time 10.4 sec (9.8-11.6)
[2017-12-20 09:02] LABS: Albumin 3.9 g/dL (3.4-5.0); Anion Gap 8 meq/L (5-15); Aspartate Aminotransferase 19 U/L (15-37); Blood Urea Nitrogen 13 mg/dL (7-18); Calcium 8.4 mg/dL (8.5-10.1); Carbon Dioxide 24.5 meq/L (21.0-32.0); Chloride 104 meq/L (98-107); Glomerular Filtration Rate Greater Than 89 mL/min (>89); Glucose,Random 92 mg/dL (74-106); Lipase 174 U/L (73-393); Potassium 4.3 meq/L (3.5-5.1); Sodium 136 meq/L (136-145)
[2017-12-20 09:03] LABS: Alanine Aminotransferase 26 U/L (10-53)
[2017-12-20 09:08] LABS: Alkaline Phosphatase 72 U/L (45-117); Creatine Kinase 117 U/L (26-192); Total Protein 8.2 g/dL (6.4-8.2)
[2017-12-20 09:21] LABS: Creatine Kinase MB 1.6 ng/mL (0.5-3.6)
[2017-12-20 11:02] LABS: Creatine Kinase 113 U/L (26-192)
[2017-12-20 11:16] LABS: Creatine Kinase MB 1.6 ng/mL (0.5-3.6)
[2017-12-20 11:59] LABS: Creatine Kinase 114 U/L (26-192)
--- NOTE | 2017-12-20 21:56 | ECG ---
Date Performed: 12/20/2017 Time Performed: 10:38:33 PTAGE: 32 years EKG: Sinus rhythm MODERATE VOLTAGE CRITERIA FOR LVH, CONSIDER NORMAL VARIANT BORDERLINE ECG PREVIOUS TRACING : 12/20/2017 06.54 Since the previous tracing, no significant change noted DOCTOR: Genesis Williamson Interpretating Date/Time 12/20/2017 21:56:20
--- NOTE | 2017-12-20 22:15 | ECG ---
Date Performed: 12/20/2017 Time Performed: 06:54:03 PTAGE: 32 years EKG: Sinus rhythm MODERATE VOLTAGE CRITERIA FOR LVH, CONSIDER NORMAL VARIANT BORDERLINE ECG NO PREVIOUS TRACING DOCTOR: Genesis Williamson Interpretating Date/Time 12/20/2017 22:15:01
== END 2017-12-20 16:17 | disposition left against medical advice (07) ==
LOC: NEPE 05:53 → NEDA 05:53
DX: R94.31 Abnormal electrocardiogram [ECG] [EKG]; R07.9 Chest pain, unspecified; Z98.891 History of uterine scar from previous surgery; I10 Essential (primary) hypertension; Z98.51 Tubal ligation status